=== PATIENT | male | born 1960 | race Caucasian/White ===

== ENCOUNTER 2025-04-30 18:57 | Emergency (ER) | payer BC, SELFPAY ==
--- NOTE | ~2025-04-30 | XR_ITS ---
CLINICAL HISTORY: cp 1 view chest x-ray. Comparison: None Findings: No consolidation or effusion. Cardiac and mediastinal contours appear unremarkable. Bones unremarkable. Impression: 1. No acute pulmonary disease. This document has been electronically signed by: Joaquin Adams MD on 04/30/2025 20:02:08
--- NOTE | 2025-04-30 18:59 | ECG_ITS ---
Test Reason : CHEST PAIN Blood Pressure : */* mmHG Vent. Rate : 100 BPM Atrial Rate : 100 BPM P-R Int : 132 ms QRS Dur : 84 ms QT Int : 332 ms P-R-T Axes : 65 21 55 degrees QTcB Int : 428 ms Normal sinus rhythm Possible Left atrial enlargement Inferior infarct , possibly acute ACUTE [place] / STEMI Consider right ventricular involvement in acute inferior infarct Abnormal ECG No previous ECGs available Referred By: Renea Henriquez Electronically Signed By: DAYAMI SPEARS
[2025-04-30 19:10] VITALS: BP 142/97; PULSE 116; RESP 20; TEMP 36.9; O2SAT 97; BMI 27.8
--- NOTE | 2025-04-30 19:12 | ED.GENADULT ---
[facility] - General Adult General Chief complaint: Chest Pain Stated complaint: Chest Pain Time Seen by Provider: 04/30/25 19:11 Source: patient Mode of arrival: ambulatory Limitations: no limitations History of Present Illness ED Provider: Dr. Reed [facility] narrative: 64-year-old male history of borderline hypertension history of family history of cardiac issues presented hospital today for evaluation of chest pain and shortness of breath started around noon. Patient's EKG was concerning for inferior STEMI. Did reach out to interventional radiologist. Patient stated this started all of a sudden. No history of cocaine use or drug use. Related Data Allergies Allergy/AdvReac Type Severity Reaction Status Date / Time No Known Allergies Allergy Verified 04/30/25 19:11 Review of Systems Review of Systems: Pertinent review of systems as mentioned in HPI. All other system otherwise negative. [facility] Past Medical History [facility] Narrative: Medical history as mentioned in HPI Social History Social History Smoked in Last 30 Days: No Use of substances other than those prescribed or required for medical reasons: No Advance Directives: Yes Advance Directives on File: Yes Advance Directives Date on File: 04/30/25 Do you have a plan to hurt others: No Plan Physical Exam ED Exam Exam: General: Pleasant, no distress, interacting appropriately Head: Normacephalic, atraumatic ENT: oral mucosa moist, neck supple, no tracheal deviation Cardiovascular: Tachycardic rate, regular rhythm, no murmurs, rubbing, gallops Respiratory: CTAB, no wheeze, rales, rhonchi Extremities: No limb pain or swelling, no calf tenderness Neurological: Awake and alert, no facial droop noted Skin: Warm and dry Psychiatric: Appropriate mood and thoughts Vital Signs: Vital Signs - 24 hr 04/30/25 19:10 04/30/25 19:31 04/30/25 20:00 Temperature 98.5 F 97.4 F Pulse Rate 116 H 95 73 Respiratory Rate 20 16 Blood Pressure 142/97 H 145/90 H 141/90 H Pulse Oximetry 97 98 Oxygen Delivery Method Room Air Room Air 04/30/25 20:19 Temperature Pulse Rate 86 Respiratory Rate Blood Pressure 129/78 Pulse Oximetry Oxygen Delivery Method BMI result Body Mass Index 27.8 Medications Administered Generic Name Dose Route Start Last Admin Trade Name Freq PRN Reason Stop Dose Admin Nitroglycerin 100 mg in 250 mls @ 0 mls/hr 04/30/25 20:00 04/30/25 20:19 Nitroglycerin/D5w IVCONT 20 mcg/min .Q0M FLOWER 3 mls/hr Protocol Administration Per Protocol Heparin Sodium/Sodium Chloride 25,000 unit in 250 mls @ 0 mls/hr 04/30/25 20:00 04/30/25 20:37 Heparin Sodium,Porcine/1/2ns IVCONT 12 units/kg/hr .Q0M FLOWER 9.38 mls/hr Protocol Administration Per Protocol Discontinued Medications Generic Name Dose Route Start Last Admin Trade Name Freq PRN Reason Stop Dose Admin Aspirin 324 mg 04/30/25 19:11 04/30/25 19:16 Aspirin 81 Mg Tab.Chew PO 04/30/25 19:12 324 mg ONCE ONE Administration Heparin Sodium (Porcine) 4,000 unit 04/30/25 19:11 04/30/25 19:15 Heparin Sodium,Porcine 5,000 Unit/Ml Vial IVPUSH 04/30/25 19:12 4,000 unit ONCE ONE Administration Sodium Chloride 1,000 mls @ 999 mls/hr 04/30/25 19:45 04/30/25 19:53 Ns IV 04/30/25 20:45 999 mls/hr .Q1H1M FLOWER Administration Nitroglycerin 0.4 mg 04/30/25 19:27 04/30/25 19:31 Nitroglycerin 0.4 Mg Tab.Subl SUBLINGUAL 04/30/25 19:28 0.4 mg ONCE ONE Administration Ticagrelor 180 mg 04/30/25 19:11 04/30/25 19:16 Ticagrelor 90 Mg Tablet PO 04/30/25 19:12 180 mg ONCE ONE Administration Medical Decision Making Medical Decision Making MDM Narrative: 64-year-old male presented hospital today for chest pain or shortness of breath. Patient is complaining of chest discomfort that radiates up to his throat. He is not complaining of pain however discomfort. EKG does show concerns for possible inferior STEMI. We paged [facility] content analyst. Discussed with early intervention specialist Dr. Chavez about the case. He does not think patient meets STEMI criteria. Recommends nitroglycerin to see if it helps with chest pain and repeat EKG. Aspirin, Brilinta, IV heparin will be given to the patient. Dose of nitroglycerin will be given to the patient per cardiology recommendation. Patient's chest and throat discomfort has improved after nitroglycerin, repeat EKG shows improvement of his ST-elevation . Discuss the case with Dr. Chavez the early intervention specialist. He recommended transfer on nitroglycerin drip and heparin drip to cardiac step-down unit. If chest pain worsened to give him a call back and he will take patient to the fence laborer. Troponin is elevated at 1746. Patient will be transferred to [facility] at this time. Differential Diagnosis Differential Diagnoses: The differential diagnosis associated with the presentation includes ACS, chest pain, STEMI Lab Data MDM Lab Attestation statement: I reviewed the patient's lab results. 04/30/25 19:17 04/30/25 19:17 Labs: Lab Results 04/30/25 Range/Units 19:17 WBC 12.4 H (4.8-10.8) X10*3/uL RBC 5.80 (4.60-5.80) X10*6/uL Hgb 15.9 (14.0-18.0) g/dl Hct 46.4 (42.0-52.0) % MCV 80.0 (80.0-98.0) fL MCH 27.4 (27.0-33.0) pg MCHC 34.3 (31.0-36.0) g/dl RDW 13.3 (11.0-16.0) % Plt Count 337 (160-400) X10*3/uL MPV 8.6 L (9.4-12.4) fL Immature Gran % (Auto) 0.4 (0.0-0.4) % Neut % (Auto) 75.5 H (45-73) % Lymph % (Auto) 17.0 L (20-40) % [place] % (Auto) 6.5 (2-11) % Eos % (Auto) 0.1 (0-4) % Baso % (Auto) 0.5 (0-2) % Lymph # (Auto) 2.1 (1.2-4.9) X10*3/uL [place] # (Auto) 0.8 (0.1-1.2) X10*3/uL Eos # (Auto) 0.0 (0.0-0.4) X10*3/uL Baso # (Auto) 0.1 (0.0-0.2) X10*3/uL Abs Immat Gran (auto) 0.05 H (0.00-0.03) X10*3/uL Absolute Neuts (auto) 9.4 H (2.0-8.3) x10*3/uL Absolute Nucleated RBC 0.000 (0.0-0.012) X10*3/uL Nucleated RBC % (auto) 0.0 (0.0-0.2) /100WBC PT 12.2 (11.2-13.5) SEC INR 1.0 (0.9-1.1) APTT 31.3 (26.7-34.1) SEC Sodium 140 (135-145) mmol/L Potassium 3.7 (3.3-5.1) mmol/L Chloride 105 (96-108) mmol/L Carbon Dioxide 25 (22-29) mmol/L Anion Gap 14 (12-20) BUN 27 H (9-16) mg/dL Creatinine 1.10 (0.5-1.4) mg/dL Estim Creat Clear Calc 68.5 Estimated GFR > 60 Random Glucose 139 H (60-115) mg/dL Calcium 10.1 (8.4-10.2) mg/dL Total Bilirubin 0.4 (0.0-1.0) mg/dL Direct Bilirubin 0.1 (0.0-0.5) mg/dL AST 60 H (5-37) U/L ALT 27 (0-40) U/L Alkaline Phosphatase 89 (39-117) U/L Troponin I High Sens 1746.8 H* (<3.5-35.0) ng/L Total Protein 7.5 (6.5-8.0) g/dL Albumin 4.6 (3.5-5.0) g/dL Independent Interpretation I performed an independent interpretation of an: EKG and Plain X-Ray Radiology Impression Discussion of test interpretation with radiology: I have reviewed the radiologist's reading. Critical Care Time Critical Care Time Critical Care Time: Yes Total Critical Care Time: 40 Attestation: Time is exclusive of separately billable procedures. Time includes: direct patient care, patient reassessment, coordination of patient care, interpretation of data (laboratory data, pulse oximetry, arterial blood gases and chest xrays), review of patient's medical records, medical consultation and documentation of patient care. Procedures excluded from critical care time: central intravenous line placement and electrocardiography. Discharge Plan Discharge Clinical Impression: Acute non-ST elevation myocardial infarction (NSTEMI) Patient Disposition: [facility] Transfer Details: [facility] (Dr. Godoy) Print Language: Greek
[2025-04-30 19:22] LABS: MANUAL DIFF FLAG NO
--- NOTE | 2025-04-30 19:25 | ECG_ITS ---
Test Reason : STEMI Blood Pressure : */* mmHG Vent. Rate : 96 BPM Atrial Rate : 96 BPM P-R Int : 136 ms QRS Dur : 86 ms QT Int : 340 ms P-R-T Axes : 57 8 32 degrees QTcB Int : 429 ms Normal sinus rhythm Nonspecific ST abnormality Abnormal ECG When compared with ECG of 30-Apr-2025 19:00, No significant change was found Referred By: Licha Reed Electronically Signed By: DAYAMI SPEARS
[2025-04-30 19:31] VITALS: BP 145/90; PULSE 95
[2025-04-30 19:35] LABS: Hematocrit 46.4 % (42.0-52.0); Hemoglobin 15.9 g/dl (14.0-18.0); Imm Gran Abs Auto 0.05 X10*3/uL (0.00-0.03); Imm Gran Pct Auto 0.4 % (0.0-0.4); Lymphocytes Absolute Auto 2.1 X10*3/uL (1.2-4.9); Mean Corpuscular HGB Conc 34.3 g/dl (31.0-36.0); Mean Corpuscular Hemoglobin 27.4 pg (27.0-33.0); Mean Corpuscular Volume 80.0 fL (80.0-98.0); NRBC Abs Auto 0.000 X10*3/uL (0.0-0.012); NRBC Pct Auto 0.0 /100WBC (0.0-0.2); Platelet Count 337 X10*3/uL (160-400); Red Blood Count 5.80 X10*6/uL (4.60-5.80); White Blood Count 12.4 X10*3/uL (4.8-10.8)
[2025-04-30 19:40] LABS: Alanine Aminotransferase 27 U/L (0-40); Albumin Level 4.6 g/dL (3.5-5.0); Alkaline Phosphatase 89 U/L (39-117); Anion Gap 14 (12-20); Aspartate Amino Transferase 60 U/L (5-37); Blood Urea Nitrogen 27 mg/dL (9-16); Calcium 10.1 mg/dL (8.4-10.2); Carbon Dioxide 25 mmol/L (22-29); Chloride 105 mmol/L (96-108); Creatinine Clr Calc Pharmacy 68.5; Estimated Glomerular Filt Rate > 60; Potassium 3.7 mmol/L (3.3-5.1); Sodium 140 mmol/L (135-145); Total Protein 7.5 g/dL (6.5-8.0)
[2025-04-30 20:00] VITALS: BP 141/90; PULSE 73; RESP 16; TEMP 36.3; O2SAT 98
[2025-04-30 20:19] VITALS: BP 129/78; PULSE 86
[2025-04-30] MEDS: Nitroglycerin/D5W 100 MG/250 ML INFUS..BTL IVCONT (20:19)
[2025-04-30 20:30] LABS: INTERNATIONAL NORM RATIO 1.0 (0.9-1.1); Prothrombin Time 12.2 SEC (11.2-13.5)
[2025-04-30 20:32] LABS: Partial Thromboplastin Time 31.3 SEC (26.7-34.1)
[2025-04-30] MEDS: Heparin Sodium,Porcine/1/2NS 25,000 UNIT/250 ML IV.SOLN 9.38 UNIT IVCONT (20:37)
--- NOTE | 2025-04-30 20:40 | PC.NURSE ---
Pt aox4, resting at the bedside. Reports chest pain is very minimal and only feel discomfort on the throat. VSS. Heparin drip started at 12u/kg/hr as per protocol. Nitro drip started at 20mcg/min as per protocol. Pt tolerating well. Monitoring is ongoing. Pending transport. Pt made aware of plan of care.
--- NOTE | 2025-04-30 21:49 | PC.NURSE ---
Nurse to nurse report given to PARAM Whitley at [facility]. Pt in transit via EMS going to [facility]. Pt and family at bedside aware of plan of care.
[2025-04-30 21:58] VITALS: BP 129/78; PULSE 86
[2025-04-30 21:59] VITALS: BP 129/78; PULSE 86; RESP 16; TEMP -17.7; TEMP 0
== END 2025-04-30 22:02 | disposition short-term general hospital (02) ==
PROVIDERS: Emergency Provider Student in an Organized Health Care Education/Training Program
DX: I21.4 Non-ST elevation (NSTEMI) myocardial infarction (principal); R07.9 Chest pain, unspecified; R06.02 Shortness of breath; R94.31 Abnormal electrocardiogram [ECG] [EKG]
CPT/HCPCS: 36415; 71045; 80048; 80076; 84484; 85025; 85610; 85730; 93005; 96365; 96366; 96375; 99285; J1644; J2305

== ENCOUNTER → 2025-04-30 18:59 | Outpatient (BNV) | payer BC, SELFPAY | PROVIDERS: Emergency Provider Student in an Organized Health Care Education/Training Program; Visit Provider Internal Medicine | DX: R94.31 Abnormal electrocardiogram [ECG] [EKG] (principal); R07.9 Chest pain, unspecified; I21.3 ST elevation (STEMI) myocardial infarction of unspecified site | CPT/HCPCS: 93010 ==

== ENCOUNTER → 2025-04-30 19:32 | Outpatient (BNV) | payer BC, SELFPAY | PROVIDERS: Emergency Provider Student in an Organized Health Care Education/Training Program; Visit Provider Radiology Diagnostic Radiology | DX: R07.9 Chest pain, unspecified (principal) | CPT/HCPCS: 71045 ==